=== PATIENT | male | born 1950 | race Caucasian/White ===

== ENCOUNTER 2018-02-03 22:03 | Emergency (ER) | payer SELFPAY ==
[~2018-02-03] VITALS: Ht 167.6 cm; Wt 81.6 kg
[2018-02-03 22:03] VITALS: BP 136/86
--- NOTE | 2018-02-03 22:08 | NUR ---
PT ON BED DELAY D/T NO AVAILABLE BEDS AT THIS TIME
--- NOTE | 2018-02-03 22:10 | NUR ---
PT TO ER BED 7.
--- NOTE | 2018-02-03 22:21 | NUR ---
PT BIBA FOR ETOH, ALTERED. PER [facility] PT WAS FOUND SLEEPING IN PARKING LOT BY [D. PT ON ARRIVAL IS AWAKE AND SPEAKING,BUT CONFUSED. VSS, PER [facility] PT HX DM , BS IN [facility] WAS 260. PT IN BED, SLEEPING , POSITIONED TO COMFORT.
--- NOTE | 2018-02-03 23:11 | NUR ---
PT SLEEPING INBED, EASILY AROUSABLE, STATES HE "DRANK TOO MANY BEERS"
--- NOTE | 2018-02-04 01:45 | NUR ---
PT IN BED SLEEPING, EASILY AROUSABLE.
--- NOTE | 2018-02-04 02:00 | NUR ---
PT HAS MUMBLED SPEECH WHEN WOKEN, PT STILL APPEARS TO BE INTOXICATED , STATES HE WANTS TO " GO TO THE MARKET FOR MORE TEQUILA"
--- NOTE | 2018-02-04 03:30 | NUR ---
PT IN BED SLEEPING, COMFORT NEEDS MET.
--- NOTE | 2018-02-04 04:30 | NUR ---
PT AMBULATORY EVEN STEADY GAIT TO ER BATHROOM. RETURNED TO BED, WILL D/C AT 0630 PER MD REQUEST.
--- NOTE | 2018-02-04 06:37 | NUR ---
Patient discharged with v/s stable. Written and verbal after care instructions given and explained. Patient verbalized understanding. Ambulatory with steady gait. All questions addressed prior to discharge. Advised to follow up with PMD. PT PROVIDED W/ BUS PASS.
[2018-02-04 06:38] VITALS: BP 103/66
== END 2018-02-04 06:38 | disposition home or self-care (01) ==
LOC: MED 22:03
DX: F10.129 Alcohol abuse with intoxication, unspecified (principal); R41.0 Disorientation, unspecified; R11.0 Nausea; R53.83 Other fatigue; Z88.0 Allergy status to penicillin
CPT/HCPCS: 81002; 99283